=== PATIENT | female | born 1950 | race Caucasian/White ===

== ENCOUNTER 2019-09-17 05:38 | Emergency (ER) | payer MEDICARE, OTHER ==
[~2019-09-17] VITALS: Ht 162.6 cm; Wt 59.1 kg
[2019-09-17] MEDS ORDERED: AZIT250T12 PO (05:56)
--- NOTE | 2019-09-17 05:56 | ED EENT ---
History of Present Illness General Stated Complaint: SINUS PAIN Source: patient Exam Limitations: no limitations History of Present Illness Date Seen by Provider: Sep 17, 2019 Time Seen by Provider: 05:45 Initial Comments Patient presents ER by private conveyance with chief complaint of 2 days now of sinus discharge and pain right and left maxillary sinuses right worse than left. She's been using some [id number] medications. She is not on steroids or antibiotics recently. No fevers or chills. She has a scratchy throat and occasional dry nonproductive cough. No history of asthma or COPD. She does not smoke cigarettes. Allergies and Home Medications Patient Home Medication List Home Medication List Reviewed: Yes Review of Systems Review of Systems Constitutional: No chills, No diaphoresis Eyes: Denies Blindness, Denies Blurred Vision Ears: Denies Dizziness, Denies Pain Nose: see HPI, congestion Mouth: see HPI Throat: see HPI Past Yzrsncp-Ajzxni-Zxgsff Hx Patient Social History Alcohol Use: Denies Use Recreational Drug Use: No Smoking Status: Never a Smoker Recent Foreign Travel: No Physical Exam Height, Weight, BMI Height: '" Weight: lbs. oz. kg; BMI Method: General Appearance: WD/WN, no apparent distress Eyes: bilateral eye normal inspection, bilateral eye PERRL, bilateral eye EOMI Ears: bilateral ear auricle normal, bilateral ear canal normal, bilateral ear TM normal Nose: normal inspection; No discharge; sinus tenderness (bilateral maxillary) Mouth/Throat: normal mouth inspection, pharynx normal Neck: non-tender, full range of motion, supple, normal inspection Cardiovascular: normal peripheral pulses, regular rate, rhythm Respiratory: lungs clear, normal breath sounds, no respiratory distress, no accessory muscle use Progress/Results/Core Measures Progress Progress Note : Time: 05:54 Progress Note Patient is sinus tenderness and it would be reasonable to put her on antibiotics. We have offered her Augmentin but she would much prefer azithromycin as she likes the brand name recognition and its easier to take so we'll provide her with that and she can follow-up with primary care if she has any further concerns. Departure Impression Primary Impression: Maxillary sinusitis, acute Qualified Codes: J01.00 - Acute maxillary sinusitis, unspecified Disposition: 01 HOME, SELF-CARE Condition: Stable Departure-Patient Inst. Decision time for Depature: 05:54 Referrals: CHELI,MARGARITA R SLABBER LIGHT (PCP/Family) Primary Care Physician Patient Instructions: Sinusitis, Adult (DC) Add. Discharge Instructions: Drink lots of fluids. Humidifiers and vapor rubs hot tea with honey and nasal saline rinses can be helpful. Tylenol 1000 mg every 8 hours as needed for pain. Ibuprofen 800 mg every 8 hours as needed for pain. Azithromycin take 2 tablets on the first day and then one tablet every subsequent day until the medication is completed. Expect to see some improvement by day 3. If you complete the antibiotics and are still having significant pain or discharge then you can follow-up with primary care for reevaluation. Scripts Azithromycin (Azithromycin) 250 Mg Tablet 250 MG PO UD, #6 TAB 0 Refills TAKE 2 TABLETS ON DAY ONE THEN TAKE 1 TABLET DAILY FOR FOUR MORE DAYS Prov: RAVINDER AGEE 09/17/19 RAVINDER AGEE Sep 17, 2019 05:56 POS
[2019-09-17 05:58] VITALS: BP 124/67
== END 2019-09-17 05:58 | disposition home or self-care (01) ==
LOC: ER FS 05:42
DX: J01.00 Acute maxillary sinusitis, unspecified (principal)
CPT/HCPCS: 99282